=== PATIENT | female | born 1995 | race African-American/Black ===

== ENCOUNTER 2018-07-05 20:23 | Emergency (ER) | payer OTHER ==
[2018-07-05 20:38] VITALS: BP 117/78; PULSE 95; TEMP 98.4; BMI 27.1
--- NOTE | 2018-07-05 21:07 | PDOC ---
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 07/05/18 21:07 Past History - Past Medical History Allergies/Adverse Reactions: Allergies Allergy/AdvReac Type Severity Reaction Status Date / Time No Known Allergies Allergy Verified 07/05/18 20:44 Home Medications: Ambulatory Orders Bupropion HCl [Wellbutrin -] 150 mg PO DAILY 07/05/18 Citalopram Hydrobromide [Celexa -] 20 mg PO DAILY 07/05/18 COPD: No - Suicide/Smoking/Psychosocial Hx Smoking History: Never smoked Review of Systems - Review of Systems Constitutional: Yes: See HPI *Physical Exam - Vital Signs Last Vital Signs Temp Pulse Resp BP Pulse Ox 98.4 F 95 H 18 117/78 99 07/05/18 20:36 07/05/18 20:36 07/05/18 20:36 07/05/18 20:36 07/05/18 20:36 - Physical Exam Comments: 07/05/18 21:06 HEAD: NC/AT EYES: Conjuntiva clear MS: Full ROM in all joints without edema; there is a small puncture wound on the NEUROLOGIC: No gross sensory or motor deficits, NVID SKIN: Normal color and temperature no lesions or rashes *DC/Admit/Observation/Transfer - Referrals - Patient Instructions
[2018-07-05 21:45] LABS: BASO % 0.4 % (0-2.0); EOS % 0.2 % (0-4.5); HEMATOCRIT 42.2 % (32.4-45.2); HEMOGLOBIN 13.5 GM/dL (10.7-15.3); LYMPH % 27.5 % (8-40); MCH 26.2 pg (25.7-33.7); MEAN CELL VOLUME 81.9 fl (80-96); MEAN PLT VOLUME 8.5 fl (7.5-11.1); MONO % 4.5 % (3.8-10.2); NEUT % 67.4 % (42.8-82.8); PLATELET COUNT 279 K/MM3 (134-434); RBC 5.15 M/mm3 (3.60-5.2); RDW 13.8 % (11.6-15.6); WHITE BLOOD COUNT 9.2 K/mm3 (4.0-10.0)
[2018-07-05 23:09] LABS: ALBUMIN 3.7 g/dl (3.4-5.0); ALK PHOS 60 U/L (45-117); ANION GAP 9 MMOL/L (8-16); BILIRUBIN,TOTAL 0.3 mg/dL (0.2-1); BLOOD UREA NITROGEN 13 mg/dL (7-18); CALCIUM 9.6 mg/dL (8.5-10.1); CHLORIDE 103 mmol/L (98-107); CHOLESTEROL 170 mg/dL (50-200); CO2 24 mmol/L (21-32); CREATININE 0.8 mg/dL (0.55-1.3); GAMMA GLUTAMYL TRANSPEPTIDASE 15 U/L (5-85); GLUCOSE,RANDOM 67 mg/dL (74-106); LDH 221 U/L (84-246); PHOSPHOROUS 4.2 mg/dL (2.5-4.9); POTASSIUM 3.9 mmol/L (3.5-5.1); SGOT/AST 26 U/L (15-37); SGPT/ALT 32 U/L (13-61); SODIUM 136 mmol/L (136-145); TOT PROT 8.6 g/dl (6.4-8.2); TRIGLYCERIDES 84 mg/dL (0-150); URIC ACID 4.5 mg/dL (2.6-7.2)
[2018-07-05] MEDS ORDERED: HIV POST EXPOSURE PROPHYLAXIS KIT NR ONE (23:13)
--- NOTE | 2018-07-05 23:15 | PDOC ---
*Physical Exam - Vital Signs Last Vital Signs Temp Pulse Resp BP Pulse Ox 98.4 F 95 H 18 117/78 99 07/05/18 20:36 07/05/18 20:36 07/05/18 20:36 07/05/18 20:36 07/05/18 20:36 ED Treatment Course - LABORATORY CBC & Chemistry Diagram: 07/05/18 21:26 07/05/18 21:26 - ADDITIONAL ORDERS Additional order review: Laboratory Results 07/05/18 21:26 Sodium 136 Potassium 3.9 Chloride 103 Carbon Dioxide 24 Anion Gap 9 BUN 13 Creatinine 0.8 Creat Clearance w eGFR 89.69 Random Glucose 67 L Uric Acid 4.5 Calcium 9.6 Phosphorus 4.2 Total Bilirubin 0.3 GGT 15 AST 26 ALT 32 Alkaline Phosphatase 60 LD Total 221 Total Protein 8.6 H Albumin 3.7 Triglycerides 84 Cholesterol 170 07/05/18 21:26 RBC 5.15 MCV 81.9 MCHC 32.0 RDW 13.8 MPV 8.5 Neutrophils % 67.4 Lymphocytes % 27.5 Monocytes % 4.5 Eosinophils % 0.2 Basophils % 0.4 Medical Decision Making - Medical Decision Making 07/05/18 23:13 HIV negative/ PEP given. patient to follow up with PCP *DC/Admit/Observation/Transfer Diagnosis at time of Disposition: History of exposure to potentially hazardous body fluids, presenting hazards to health - Discharge Dispostion Disposition: HOME - Referrals Referrals: ON STAFF,NOT [Primary Care Provider] - - Patient Instructions Printed Discharge Instructions: How to Handle Body Fluid Exposure -- Healthcare Worker Additional Instructions: please follow up with pcp as soon as possible or your employee health office - Post Discharge Activity Forms/Work/School Notes: Back to Work
[2018-07-05] MEDS ORDERED: HIV POST EXPOSURE PROPHYLAXIS KIT PO ONE (23:20)
[2018-07-07 05:12] LABS: HBsAG SCREEN Negative (Negative)
== END 2018-07-05 23:25 | disposition home or self-care (01) ==
LOC: JER 20:23 → JERFT 20:23 → JER 23:25
DX: Z77.21 Contact with and (suspected) exposure to potentially hazardous body fluids (principal); W46.1XXA Contact with contaminated hypodermic needle, initial encounter; Y93.F9 Activity, other caregiving; Y92.538 Other ambulatory health services establishments as the place of occurrence of the external cause; Y99.0 Civilian activity done for income or pay
CPT/HCPCS: 36415; 80053; 82465; 82977; 83615; 84100; 84478; 84550; 85025; 86317; 86706; 86803; 87340; 87389; 99282-25